=== PATIENT | female | born 1985 | race Caucasian/White ===

== ENCOUNTER → 2019-09-18 11:31 | Outpatient (BNVA) | payer MEDICAID, SELFPAY | PROVIDERS: Family Provider Family Medicine; PCP Family Medicine; Visit Provider Specialist | DX: G43.711 Chronic migraine without aura, intractable, with status migrainosus (principal); G35 Multiple sclerosis; F17.210 Nicotine dependence, cigarettes, uncomplicated | CPT/HCPCS: 64615; J0585 ==

== ENCOUNTER → 2020-01-01 13:04 | Outpatient (BNVA) | payer MEDICAID, SELFPAY | PROVIDERS: Family Provider Family Medicine; PCP Family Medicine; Visit Provider Specialist | DX: G43.711 Chronic migraine without aura, intractable, with status migrainosus (principal); G35 Multiple sclerosis; F17.210 Nicotine dependence, cigarettes, uncomplicated | CPT/HCPCS: 64615; 99213; J0585 ==

== ENCOUNTER 2020-02-18 08:41 | Outpatient (CLI) | payer MEDICAID, SELFPAY ==
[2020-02-18] MEDS: acetaminophen 500 mg Tablet 1000 MG PO (09:15)
[2020-02-18] MEDS: diphenhydrAMINE 50 mg/mL SDV 1mL 25 MG IVP (09:20)
--- NOTE | 2020-02-18 10:50 | PC.NURSE ---
1050 Ocrevus titrated up to 80 ml/hr. Patient denies any needs at this time. No S/S of site reaction.
== END 2020-02-18 08:42 | disposition home or self-care (01) ==
LOC: NSACUTE 08:42
PROVIDERS: Family Provider Family Medicine; PCP Family Medicine; Visit Provider Specialist
DX: G35 Multiple sclerosis (principal); F17.210 Nicotine dependence, cigarettes, uncomplicated
CPT/HCPCS: 96374; 96375; 99214; J1200; J2350; J2930; J7040

== ENCOUNTER 2020-02-25 08:11 | Outpatient (CLI) | payer MEDICAID, SELFPAY ==
--- NOTE | 2020-02-25 08:30 | FL_ITS ---
WS: [id number] FL barium swallow modifd [id number] REASON FOR EXAM: T17.308A Unspecified foreign body in larynx causing other... FLUOROSCOPY TIME: 1.3 minutes FINDINGS: Patient has multiple sclerosis. At fluoroscopy there appeared to be slow motility through t he thoracic esophagus with slow flow through the midportion down to the lower there is no complete ob struction seen. FL/FL barium swallow modifd 63284 IMPRESSION: Abnormal mobility in the mid thoracic esophagus see speech pathology workup for details.
== END 2020-02-25 08:12 | disposition home or self-care (01) ==
LOC: RAD 08:12
PROVIDERS: Family Provider Family Medicine; PCP Family Medicine; Visit Provider Specialist
DX: T17.308A Unspecified foreign body in larynx causing other injury, initial encounter (principal); X58.XXXA Exposure to other specified factors, initial encounter
CPT/HCPCS: 74230; 92611

== ENCOUNTER 2020-04-05 09:47 | Day surgery (SDC) | payer MEDICAID, SELFPAY ==
[2020-04-02 08:26] VITALS: BMI 47.8
[2020-04-05 10:06] LABS: OR HCG Qualitative Urine Negative (Negative)
[2020-04-05 10:11] VITALS: BP 130/85; PULSE 73; RESP 18; TEMP 36.9; O2SAT 97
[2020-04-05] MEDS: sodium chloride 0.9% 1,000 ML 30 ML IV (10:22)
--- NOTE | 2020-04-05 10:29 | P.ANESASSM_ITS ---
Pre-Anesthetic Assessment Pre-Anesthetic Assessment: Height/Weight: Height 1.8 m Weight 155.582 kg Temp Pulse Resp BP Pulse Ox 98.5 F 73 18 130/85 97 04/05/20 10:11 04/05/20 10:11 04/05/20 10:11 04/05/20 10:11 04/05/20 10:11 Preop Diagnosis: d Proposed Procedure: Operation Date: 04/05/20 10:30 Proposed Procedures p EGD 21763 R13.10(Not Applicable) - Jaun Webber MD Last intake: Intake Last Liquid Date 04/05/20 Last Liquid Time 00:10 Last Solid Date 04/04/20 Last Solid Time 23:30 Social: Social History: Tobacco and No alcohol Exam: Pre-Anes Outpt Exam: alert, oriented x 3, clear to auscultation bilaterally and regular rate & rhythm Airway: Submandibular: WNL Cervical ROM: WNL MP: 2 Dentition: Other (teeth ok) History/ROS: No significant history except as noted Pulmonary: Pulmonary: None reported CV/HEM: CV/HEM: None reported : : None reported Hepatic: Hepatic: None reported GI: Comments: dysphagia Metabolic: Metabolic: Morbid obesity Musc/skel: Musc/skel: Weakness (left side) Neuropsych: Neuropsych: Anxiety and Depression Comments: MS- no resp involv ement Anesthetic Plan: ASA status: 3 Anesthesia: Anesthesia Evaluation and MAC Risk of > 500 ml blood loss (7ml/kg in children): No Meds/Allergies Current Medications: Current Medications Generic Name Dose Route Start Last Admin Trade Name Freq PRN Reason Stop Dose Admin Sodium Chloride 1,000 mls @ 30 ml s/hr 04/05/20 09:45 04/05/20 10:22 Sodium Chloride 0.9% IV 30 mls/hr .Q24H HOLLIE Administration PFSH Anesthesia PFSH: Medical History Chronic migraine without aura, with intractable migraine, so stated, with status migrainosus History of DVT (deep vein thrombosis) Clot in right arm due to Port-A-Cath complication. Treated with Coumadin for 6 months. Negative evaluation for genetic causes. Multiple sclerosis not affecting current episode of care Surgical History History of removal of Port-a-Cath inserted 2003; removed 2011 Family History Grandfather Diabetes paternal Hypertension paternal Heart disease paternal Hyperlipidemia paternal Father Hyperlipidemia Hypertension Grandmother Breast cancer paternal Social History Smoking and tobacco status: current every day smoker cigarettes [ Other cigarette details: Resumed smoking, currently 4 cigarettes/day. Previously quit smoking 06/2013. ] Alcohol intake: current Alcohol intake frequency: other Current occupational status: unemployed History of recent travel: No Additional social history: Well balanced diet Data Anesthesia Other Labs: Laboratory Results - last 48 hr 04/05/20 09:58 Urine HCG, Qual Negative Cardiac Studies: No Data to Display
--- NOTE | 2020-04-05 10:50 | W.PM.OPSUD ---
Surgery/Procedure H&P Update DATE OF PROCEDURE: April 05, 2020 DATE H&P PERFORMED: 04/01/20 PREOP DIAGNOSIS: d PLANNED PROCEDURE: Operation Date: 04/05/20 10:30 Proposed Procedures p EGD 99828 R13.10(Not Applicable) - Jaun Webber MD
[2020-04-05 11:02] VITALS: BP 112/75; PULSE 75; RESP 16; TEMP 36.6; O2SAT 94
--- NOTE | 2020-04-05 11:05 | ANE.PACU2 ---
Inpatient post-anesthesia follow up: Airway intact: Yes Vital signs: Temperature 97.8 F Pulse Rate 75 Respiratory Rate 16 Blood Pressure 112/75 Pulse Oximetry 94 Oxygen Delivery Me thod Nasal Cannula Oxygen Flow Rate Fraction of Inspir ed Oxygen Hydration adequate: Yes Nausea and vomiting: No Pain level: 1 Mental status: Baseline
[2020-04-05 11:17] VITALS: BP 114/78; PULSE 61; RESP 18; O2SAT 96
[2020-04-06 05:56] LABS: H. Pylori / CLO Test Negative
== END 2020-04-05 11:30 | disposition home or self-care (01) ==
PROVIDERS: PCP Family Medicine; Visit Provider Internal Medicine
PROC: 0DJ08ZZ Inspection of Upper Intestinal Tract, Via Natural or Artificial Opening Endoscopic (ICD-10-PCS; CPT 43235; principal; 2020-04-05 10:30)
DX: R13.10 Dysphagia, unspecified (principal); K22.10 Ulcer of esophagus without bleeding; K29.70 Gastritis, unspecified, without bleeding; Z86.718 Personal history of other venous thrombosis and embolism; G35 Multiple sclerosis; F17.210 Nicotine dependence, cigarettes, uncomplicated; Z79.82 Long term (current) use of aspirin
CPT/HCPCS: 12345; 43239; 84703; 87077; J2704; J7030

== ENCOUNTER → 2020-04-15 15:10 | Outpatient (BNVA) | payer MEDICAID, SELFPAY | PROVIDERS: PCP Family Medicine; Visit Provider Specialist | DX: G43.711 Chronic migraine without aura, intractable, with status migrainosus (principal); G35 Multiple sclerosis; F17.210 Nicotine dependence, cigarettes, uncomplicated | CPT/HCPCS: 64615; 99213; J0585 ==

== ENCOUNTER → 2020-05-11 09:00 | Outpatient (BNVA) | payer MEDICAID, SELFPAY | PROVIDERS: PCP Family Medicine; Visit Provider Specialist | DX: G35 Multiple sclerosis (principal); E66.01 Morbid (severe) obesity due to excess calories; F17.210 Nicotine dependence, cigarettes, uncomplicated | CPT/HCPCS: 99215 ==

== ENCOUNTER 2020-05-20 11:01 | Outpatient (CLI) | payer MEDICAID, SELFPAY | END 2020-05-20 11:02 | disposition home or self-care (01) | LOC: LAB 11:05 | PROVIDERS: PCP Family Medicine; Visit Provider Internal Medicine | DX: Z13.1 Encounter for screening for diabetes mellitus (principal) | CPT/HCPCS: 80053; 83036; 84443; 85025 ==

== ENCOUNTER 2020-05-28 09:03 | Outpatient (RCR) | payer MEDICAID, SELFPAY ==
[2020-05-24 09:50] LABS: Basophils % 0.7 %; Eosinophils # 0.1 10^3/uL (0.0-0.8); Eosinophils % 2.1 %; Hematocrit 43.4 % (37.0-47.0); Hemoglobin 13.7 g/dL (11.5-15.3); Lymphocytes # 1.4 10^3/uL (0.8-4.8); Lymphocytes % 24.4 %; Mean Corpuscular HGB Conc 31.6 g/dL (30.0-36.0); Mean Corpuscular Hemoglobin 30.2 pg (28.0-34.0); Mean Corpuscular Volume 95.8 fL (81-99); Mean Platelet Volume 11.4 fL (7.4-10.4); Monocytes # 0.5 10^3/uL (0.2-0.9); Monocytes % 8.9 %; Neutrophils # 3.72 10^3/uL (1.8-7.7); Neutrophils % 63.6 %; Nucleated Red Blood Cells % 0 %; Platelet Count 252 10^3/cmm (130-400); Red Blood Count 4.53 10^6/uL (4.1-5.3); Red Cell Distribution Width 13.5 % (12.1-15.1); White Blood Count 5.9 10^3/uL (4.0-10.0)
[2020-05-24 09:54] VITALS: BP 128/90; PULSE 78; RESP 18; TEMP 36.2; O2SAT 100; BMI 47.4
[2020-05-24 10:05] LABS: Estmated Average Glucose 117; Hemoglobin A1C 5.7 % (4.0-6.0)
[2020-05-24 10:20] LABS: Alanine Aminotransferase 11 U/L (0-33); Albumin Level 4.1 g/dL (3.5-5.2); Alkaline Phosphatase 74 IU/L (35-105); Anion Gap 14.8 (5-19); Aspartate Amino Transferase 11 U/L (0-32); Blood Urea Nitrogen 12 mg/dL (6-20); Calcium 8.8 mg/dL (8.5-10.5); Carbon Dioxide 21 mmol/L (22-29); Chloride 105 mmol/L (98-107); Globulin 3.3 g/dL (1.3-4.6); Glomerular Filtration Rate 142.1 mL/min (90-130); Glucose 114 mg/dL (65-115); Osmolality Calculated 281 mOsm/kg (285-295); Potassium 3.8 mmol/L (3.5-5.1); Sodium 137 mmol/L (136-145); Thyroid Stimulating Hormone 2.29 uIU/mL (0.27-4.20); Total Bilirubin 0.2 mg/dL (0.15-1.2); Total Protein 7.4 g/dL (6.6-8.7)
[2020-05-25 09:11] VITALS: BP 138/81; PULSE 69; RESP 18; TEMP 37.1; O2SAT 97
[2020-05-25 11:08] LABS: Glucose Point of Care 140 mg/dL (70-110)
[2020-05-25 11:08] LABS: Glucose Point of Care 171 mg/dL (70-110)
[2020-05-26 09:26] VITALS: BP 115/85; PULSE 65; RESP 18; TEMP 36.4; O2SAT 99
[2020-05-26 10:39] LABS: Glucose Point of Care 105 mg/dL (70-110)
[2020-05-27 10:16] VITALS: BP 130/73; PULSE 69; RESP 18; TEMP 36.2; O2SAT 97
[2020-05-27 11:53] LABS: Glucose Point of Care 116 mg/dL (70-110)
[2020-05-28 09:30] LABS: Glucose Point of Care 92 mg/dL (70-110)
[2020-05-28 09:33] VITALS: BP 152/88; PULSE 57; RESP 18; TEMP 36.3; O2SAT 98
[2020-05-28 11:03] LABS: Glucose Point of Care 103 mg/dL (70-110)
== END 2020-06-09 23:59 | disposition home or self-care (01) ==
LOC: OPS 09:03
PROVIDERS: PCP Family Medicine; Visit Provider Specialist
DX: G35 Multiple sclerosis (principal)
CPT/HCPCS: 36415; 36416; 80053; 82962; 83036; 84443; 85025; 96365; J2930; J7050

== ENCOUNTER → 2020-09-16 12:54 | Outpatient (BNVA) | payer MEDICAID, SELFPAY | PROVIDERS: PCP Internal Medicine; Visit Provider Specialist | DX: G43.711 Chronic migraine without aura, intractable, with status migrainosus (principal); G35 Multiple sclerosis; F17.210 Nicotine dependence, cigarettes, uncomplicated | CPT/HCPCS: 64615; 99213; J0585 ==

== ENCOUNTER → 2020-12-09 11:23 | Outpatient (BNVA) | payer MEDICAID, SELFPAY | PROVIDERS: PCP Internal Medicine; Visit Provider Specialist | DX: G35 Multiple sclerosis (principal); G43.709 Chronic migraine without aura, not intractable, without status migrainosus; G50.0 Trigeminal neuralgia; F17.210 Nicotine dependence, cigarettes, uncomplicated | CPT/HCPCS: 64615; 99214; J0585 ==

== ENCOUNTER → 2021-03-03 11:39 | Outpatient (BNVA) | payer MEDICAID, SELFPAY | PROVIDERS: PCP Internal Medicine; Visit Provider Specialist | DX: G43.711 Chronic migraine without aura, intractable, with status migrainosus (principal); G35 Multiple sclerosis | CPT/HCPCS: 64615; 99213; 99214; J0585 ==

== ENCOUNTER → 2021-06-02 11:29 | Outpatient (BNVA) | payer MEDICAID, SELFPAY | PROVIDERS: PCP Internal Medicine; Visit Provider Specialist | DX: G43.711 Chronic migraine without aura, intractable, with status migrainosus (principal); G35 Multiple sclerosis; F17.210 Nicotine dependence, cigarettes, uncomplicated | CPT/HCPCS: 64615; 99213; J0585 ==

== ENCOUNTER → 2021-09-01 07:51 | Outpatient (BNVA) | payer MEDICAID, SELFPAY | PROVIDERS: PCP Internal Medicine; Visit Provider Specialist | DX: G43.711 Chronic migraine without aura, intractable, with status migrainosus (principal); G35 Multiple sclerosis | CPT/HCPCS: 64615; 99212; 99213; J0585 ==

== ENCOUNTER → 2022-03-23 08:21 | Outpatient (BNVA) | payer MEDICAID, SELFPAY | PROVIDERS: PCP Internal Medicine; Visit Provider Specialist | DX: G43.711 Chronic migraine without aura, intractable, with status migrainosus (principal); G35 Multiple sclerosis; G50.0 Trigeminal neuralgia; G47.419 Narcolepsy without cataplexy | CPT/HCPCS: 64615; 99214; J0585 ==

== ENCOUNTER → 2022-06-15 09:44 | Outpatient (BNVA) | payer MEDICAID, SELFPAY | PROVIDERS: PCP Internal Medicine; Visit Provider Specialist | DX: G43.711 Chronic migraine without aura, intractable, with status migrainosus (principal); G47.419 Narcolepsy without cataplexy; G50.0 Trigeminal neuralgia; G35 Multiple sclerosis | CPT/HCPCS: 64615; 99213; 99214; J0585 ==

== ENCOUNTER → 2022-09-14 09:28 | Outpatient (BNVA) | payer MEDICAID, SELFPAY | PROVIDERS: PCP Internal Medicine; Visit Provider Specialist | DX: G43.711 Chronic migraine without aura, intractable, with status migrainosus (principal); G47.419 Narcolepsy without cataplexy; G35 Multiple sclerosis | CPT/HCPCS: 64615; 99213; J0585 ==

== ENCOUNTER → 2022-12-07 10:50 | Outpatient (BNVA) | payer MEDICAID, SELFPAY | PROVIDERS: PCP Internal Medicine; Visit Provider Specialist | DX: G43.711 Chronic migraine without aura, intractable, with status migrainosus (principal); G50.0 Trigeminal neuralgia; G35 Multiple sclerosis; G47.419 Narcolepsy without cataplexy | CPT/HCPCS: 64615; 99213 ==

== ENCOUNTER 2023-01-22 16:50 | Emergency (ER) | payer MEDICAID, SELFPAY ==
[2023-01-22 17:04] VITALS: BP 144/92; PULSE 83; TEMP 36.8; O2SAT 96; BMI 48.8
--- NOTE | 2023-01-22 17:07 | ECG_ITS ---
[facility] Test Date: 2023-01-22 Pat Name: Kamilla Kendall Department: Room: Gender: Female [employer]: : 1985 Requested By: Diaz Barreto Order Number: [id number] Abdullahi MD: Tuan Elias M.D. Measurements Intervals [place] Rate: 81 P: 111 NH: 152 QRS: 10 QRSD: 97 T: 51 QT: 354 QTc: 411 Interpretive Statements SINUS RHYTHM Possible left atrial enlargement INTERPRETATION BASED ON A DEFAULT AGE OF 40 YEARS No previous ECG available for comparison Electronically Signed On 01-23-2023 0:15:09 CDT by Tuan Elias M.D. [email or web address] c. stennis memorial hospitalNeptuneohiohealth riverside methodist hospitalEdgeio/store/NU/[id number] f
--- NOTE | 2023-01-22 17:07 | XRR_ITS ---
PROCEDURE INFORMATION: Exam: XR Chest Exam date and time: 01/22/2023 6:18 PM Age: 37 years old Clinical indication: Pain; Chest pressure; Additional info: Cp TECHNIQUE: Imaging protocol: Radiologic exam of the chest. Views: 1 view. COMPARISON: No relevant prior studies available. FINDINGS: Lungs: Unremarkable. No consolidation. Pleural spaces: Unremarkable. No pleural effusion. No pneumothorax. Heart/Mediastinum: Unremarkable. No cardiomegaly. Bones/joints: Unremarkable. XR/XR chest 1V portable [id number] IMPRESSION: No acute findings.
[2023-01-22 17:57] LABS: Basophils # 0.1 10^3/uL (0.0-0.1); Basophils % 0.6 %; Eosinophils # 0.2 10^3/uL (0.0-0.8); Hematocrit 42.2 % (37.0-47.0); Hemoglobin 13.5 g/dL (11.5-15.3); Lymphocytes # 2.1 10^3/uL (0.8-4.8); Lymphocytes % 26.3 %; Mean Corpuscular Hemoglobin 30.7 pg (28.0-34.0); Mean Corpuscular Volume 95.9 fl (81-99); Mean Platelet Volume 10.5 fL (7.4-10.4); Monocytes # 0.6 10^3/uL (0.2-0.9); Monocytes % 7.7 %; Neutrophils # 4.96 10^3/uL (1.8-7.7); Nucleated Red Blood Cells % 0 %; Platelet Count 237 10^3/cmm (130-400); Red Cell Distribution Width 13.2 % (12.1-15.1); White Blood Count 7.9 10^3/uL (4.0-10.0)
[2023-01-22 18:22] LABS: Troponin(5th) Baseline 6 ng/L (0-10)
[2023-01-22 18:31] LABS: Alanine Aminotransferase 21 U/L (0-33); Albumin Level 4.2 g/dL (3.5-5.2); Alkaline Phosphatase 64 U/L (35-105); Anion Gap 13.7 (5-19); Aspartate Amino Transferase 16 U/L (0-32); Blood Urea Nitrogen 9 mg/dL (6-20); Calcium 8.6 mg/dL (8.5-10.5); Carbon Dioxide 27 mmol/L (22-29); Chloride 104 mmol/L (98-107); Globulin 2.6 g/dL (1.3-4.6); Glomerular Filtration Rate 181.6 mL/min (90-130); Glucose 86 mg/dL (65-115); NT Pro B Type Natriuretic Pept 99 pg/mL (0-125); Osmolality Calculated 288 mOsm/kg (285-295); Potassium 4.7 mmol/L (3.5-5.1); Sodium 140 mmol/L (136-145); Total Bilirubin 0.2 mg/dL (0.15-1.2); Total Protein 6.8 g/dL (6.6-8.7)
[2023-01-22 20:03] LABS: Troponin 5 2HR Delta 0 ABS# (0-10)
--- NOTE | 2023-01-22 21:51 | ED_ITS ---
HPI - Chest Pain General: Chief Complaint: Chest Pain Stated Complaint: chest pain Time Seen by Provider: 01/22/23 21:47 History of Present Illness: 37-year-old female comes in today with complaints of chest discomfort. Patient reports the discomfort is centralized and more like pressure. Patient is concerned due to a history of DVT in the right upper extremity and a clot in the report that she had to have removed after treatment for uterine cancer. Patient appears nontoxic. Patient appears in mild pain. Patient denies any other medical issues. Patient's medical history includes obesity, ADHD, mental health disorder. Associated symptoms: Deny dyspnea, fever(s) or vomiting Review of Systems General: Reports: 10 or more systems reviewed and unremarkable except in HPI and below Const: Denies: fever(s) Card: Reports: chest pain Resp: Denies: dyspnea GI: Denies: vomiting : Denies: difficulty voiding Musc: Denies: neck pain or back pain Skin/Breast: Denies: rash PFSH ED PFSH: Medical History (Updated 01/22/23 @ 22:41 by NEENA Caldera) Chronic migraine without aura, with intractable migraine, so stated, with status migrainosus History of DVT (deep vein thrombosis) Clot in right arm due to Port-A-Cath complication. Treated with Coumadin for 6 months. Negative evaluation for genetic causes. Multiple sclerosis not affecting current episode of care Surgical History History of removal of Port-a-Cath inserted 2003; removed 2011 Family History Grandfather Diabetes paternal Hypertension paternal Heart disease paternal Hyperlipidemia paternal Father Hyperlipidemia Hypertension Grandmother Breast cancer paternal Social History Smoking and tobacco status: current every day smoker cigarettes [ Other cigarette details: Resumed smoking, currently 4 cigarettes/day. Previously quit smoking 06/2013.] Alcohol intake: current Alcohol intake frequency: other Substance/Drug Use: never Current occupational status: unemployed Additional social history: Well balanced diet Physical Exam Const: COMMON NORMALS: alert HENMT: COMMON NORMALS: normocephalic HEAD & SCALP: normocephalic Neck/C-Spine: COMMON NORMALS: full ROM Chest: COMMONS NORMALS: normal palpation of entire chest wall Resp: COMMON NORMALS: normal respiratory effort and clear to auscultation bilaterally AUSCULTATION: clear to auscultation bilaterally Cardio: COMMON NORMALS: regular rate and regular rhythm RATE: regular rate RHYTHM: regular rhythm GI: COMMON NORMALS: Soft to palpation and non-tender PALPATION: Yes Soft to palpation Extremity: COMMON NORMALS: normal to inspection Neuro: SENSORIUM/ORIENTATION: Yes alert Skin: COMMON NORMALS: turgor normal GENERAL SKIN EXAM: turgor normal Course Vital Signs: Vital signs: Vital Signs Temperature 98.2 F 01/22/23 17:04 Pulse Rate 83 01/22/23 17:04 Blood Pressure 144/92 01/22/23 17:04 Pulse Oximetry 96 01/22/23 17:04 Oxygen Delivery Me thod Room Air 01/22/23 17:04 MDM - Chest Pain Medical Decision Making Patient comes in today for complaints of chest pressure. Patient reports pr essure started this morning and has not improved. On exam no tenderness is noted on palpation of the chest wall. Lungs are clear to auscultation. No pain is elicited along the neck or back. No edema is noted in the extremities. Abdomen soft nontender. Vital signs are normal except for some elevation in blood pressure. Differential diagnosis includes not limited to hypertension, CHF, ACS, anxiety. Chest x-ray was normal. CBC and CMP were unremarkable. Troponin had no change at 2 hours and was less than 6. D-dimer was less than 0.5. Believe the patient may be having some chest discomfort most likely due to anxiety. Patient may have some GERD or some discomfort secondary to her ken vated blood pressure. Recommended recheck with primary care for her blood pressure and to discuss further evaluation regarding her chest discomfort. No signs of severe illness was noted and patient was stable and was released to home. Lab Data 01/22/23 17:46 01/22/23 17:46 Radiology Impressions Chest X-Ray 01/22/23 17:07 IMPRESSION: No acute findings. Laboratory Results WBC 7.9 10^3/uL (4.0-10.0) 01/22/23 17:46 RBC 4.40 10^6/uL (4.1-5.3) 01/22/23 17:46 Hgb 13.5 g/dL (11.5-15.3) 01/22/23 17:46 Hct 42.2 % (37.0-47.0) 01/22/23 17:46 MCV 95.9 fl (81-99) 01/22/23 17:46 MCH 30.7 pg (28.0-34.0) 01/22/23 17:46 MCHC 32.0 g/dL (30.0-36.0) 01/22/23 17:46 RDW 13.2 % (12.1-15.1) 01/22/23 17:46 Plt Count 237 10^3/cmm (130-400) 01/22/23 17:46 MPV 10.5 fL (7.4-10.4) H 01/22/23 17:46 Neut % (Auto) 63.0 % 01/22/23 17:46 Lymph % (Auto) 26.3 % 01/22/23 17:46 [place] % (Auto) 7.7 % 01/22/23 17:46 Eos % (Auto) 2.0 % 01/22/23 17:46 Baso % (Auto) 0.6 % 01/22/23 17:46 Neut # (Auto) 4.96 10^3/uL (1.8-7.7) 01/22/23 17:46 Lymph # (Auto) 2.1 10^3/uL (0.8-4.8) 01/22/23 17:46 [place] # (Auto) 0.6 10^3/uL (0.2-0.9) 01/22/23 17:46 Eos # (Auto) 0.2 10^3/uL (0.0-0.8) 01/22/23 17:46 Baso # (Auto) 0.1 10^3/uL (0.0-0.1) 01/22/23 17:46 Nucleated RBC % (auto) 0 % 01/22/23 17:46 Nucleated RBCs # 0.0 /100WBC 01/22/23 17:46 D-Dimer 0.35 ug/mIFEU (0-0.59) 01/22/23 17:46 Sodium 140 mmol/L (136-145) 01/22/23 17:46 Potassium 4.7 mmol/L (3.5-5.1) 01/22/23 17:46 Chloride 104 mmol/L (98-107) 01/22/23 17:46 Carbon Dioxide 27 mmol/L (22-29) 01/22/23 17:46 Anion Gap 13.7 (5-19) 01/22/23 17:46 BUN 9 mg/dL (6-20) 01/22/23 17:46 Creatinine 0.4 mg/dL (0.5-0.9) L 01/22/23 17:46 GFR Calculation 181.6 mL/min (90-130) H 01/22/23 17:46 Glucose 86 mg/dL (65-115) 01/22/23 17:46 Calculated Osmolality 288 mOsm/kg (285-295) 01/22/23 17:46 Calcium 8.6 mg/dL (8.5-10.5) 01/22/23 17:46 Total Bilirubin 0.2 mg/dL (0.15-1.2) 01/22/23 17:46 AST 16 U/L (0-32) 01/22/23 17:46 ALT 21 U/L (0-33) 01/22/23 17:46 Alkaline Phosphatase 64 U/L (35-105) 01/22/23 17:46 Troponin T Baseline 6 ng/L (0-10) 01/22/23 17:46 Troponin T 120 Minute 6.00 ng/L (0-10) 01/22/23 19:26 Delta Troponin T 0 ABS# (0-10) 01/22/23 19:26 NT-Pro-B Natriuret Pep 99 pg/mL (0-125) 01/22/23 17:46 Total Protein 6.8 g/dL (6.6-8.7) 01/22/23 17:46 Albumin 4.2 g/dL (3.5-5.2) 01/22/23 17:46 Globulin 2.6 g/dL (1.3-4.6) 01/22/23 17:46 Discharge Plan Discharge Patient Disposition: Home Clinical Impression: Chest pain Qualifiers: Chest pain type: unspecified Qualified Code(s): R07.9 - Chest pain, unspecified Condition: Stable Prescriptions: No Action Mirena 20 mcg/24 hours (5 yrs) 52 mg intrauterine device 1 device INTRAUTERI ONCE pseudoephedrine HCl [Sudafed 12 Hour] 120 mg tablet extended release 120 mg PO Q12H PRN (Reason: Cough) loratadine [Claritin] 10 mg tablet 10 mg PO DAILY Botox 100 unit recon soln 155 unit IM .every 12 weeks baclofen 20 mg tablet See Rx Instructions .ROUTE .COMPLEX Qty: 180 0RF Dose Instruction: TAKE 1 TABLET BY MOUTH TWICE DAILY Rx Instructions: TAKE 1 TABLET BY MOUTH TWICE DAILY methylphenidate HCl 20 mg tablet 20 mg PO BID 30 Days Qty: 60 0RF Rx Instructions: TAKE ONE TABLE IN MORNING AND ONE TABLE IN THE AFTERNOON methylphenidate HCl 20 mg tablet 20 mg PO DAILY 30 Days Qty: 60 0RF Rx Instructions: TAKE ONE TABLE IN MORNING AND ONE TABLE IN THE AFTERNOON DO NOT FILL UNTIL 01/06/23 methylphenidate HCl 20 mg tablet 20 mg PO DAILY 30 Days Qty: 60 0RF Rx Instructions: TAKE ONE TABLE IN MORNING AND ONE TABLE IN THE AFTERNOON DO NOT FILL UNTIL 02/05/23 pantoprazole 40 mg tablet,delayed release (DR/EC) 40 mg PO DAILY Qty: 90 1RF carbamazepine 200 mg tablet extended release 12 hr See Rx Instructions .ROUTE .COMPLEX Qty: 180 3RF Dose Instruction: TAKE 1 TABLET BY MOUTH TWICE DAILY Rx Instructions: TAKE 1 TABLET BY MOUTH TWICE DAILY lamotrigine 150 mg tablet See Rx Instructions .ROUTE .COMPLEX Qty: 60 3RF Dose Instruction: TAKE 1 TABLET BY MOUTH TWICE DAILY Rx Instructions: TAKE 1 TABLET BY MOUTH TWICE DAILY venlafaxine 150 mg capsule,extended release 24hr See Rx Instructions .ROUTE .COMPLEX Qty: 90 3RF Dose Instruction: TAKE 1 CAPSULE BY MOUTH DAILY Rx Instructions: TAKE 1 CAPSULE BY MOUTH DAILY topiramate 50 mg tablet See Rx Instructions .ROUTE .COMPLEX Qty: 180 3RF Dose Instruction: TAKE 3 TABLETS BY MOUTH TWICE DAILY Rx Instructions: TAKE 3 TABLETS BY MOUTH TWICE DAILY dimethyl fumarate 240 mg capsule,delayed release(DR/EC) See Rx Instructions .ROUTE .COMPLEX Qty: 60 0RF Dose Instruction: TAKE 1 CAPSULE BY MOUTH TWICE A DAY Rx Instructions: TAKE 1 CAPSULE BY MOUTH TWICE A DAY Discharge Orders: Discharge ED (Routine); Ordered 01/22/23 Ordered By: Good Rogers Referrals: Jaun Webber MD [Primary Care Provider] - Discharge Diet: Usual diet Discharge Activity: Increase activity as tolerated Patient Instructions: Chest Pain (ED) Activity Restrictions/Additional Instructions: Follow-up with primary care for further evaluation. You need to have your blood pressure rechecked to verify readings. Return to ED for new concerns. Coding Level of Care Code ED Clarifier for Shweta Guillermo
[2023-01-22 22:20] LABS: D Dimer 0.35 ug/mIFEU (0-0.59)
[2023-01-22 22:52] VITALS: BP 149/88; PULSE 64; RESP 18; O2SAT 97
== END 2023-01-22 22:52 | disposition home or self-care (01) ==
PROVIDERS: Emergency Medicine; Emergency Provider Nurse Practitioner Family; PCP Internal Medicine
DX: R07.9 Chest pain, unspecified (principal); F17.210 Nicotine dependence, cigarettes, uncomplicated; G35 Multiple sclerosis
CPT/HCPCS: 36415; 71045; 80053; 83880; 84484; 85025; 85378; 93005; 99285

== ENCOUNTER → 2023-03-08 09:55 | Outpatient (BNVA) | payer MEDICAID, SELFPAY | PROVIDERS: PCP Internal Medicine; Visit Provider Specialist | DX: G43.711 Chronic migraine without aura, intractable, with status migrainosus (principal); G47.419 Narcolepsy without cataplexy; G50.0 Trigeminal neuralgia; G35 Multiple sclerosis | CPT/HCPCS: 64615; 99213; J0585 ==

== ENCOUNTER → 2023-06-07 13:10 | Outpatient (BNVA) | payer MEDICAID, SELFPAY | PROVIDERS: PCP Internal Medicine; Visit Provider Specialist | DX: G47.419 Narcolepsy without cataplexy (principal); G43.711 Chronic migraine without aura, intractable, with status migrainosus; G35 Multiple sclerosis | CPT/HCPCS: 64615; 99214; J0585 ==

== ENCOUNTER → 2023-09-13 13:20 | Outpatient (BNVA) | payer MEDICAID, SELFPAY | PROVIDERS: Visit Provider Specialist | DX: G43.711 Chronic migraine without aura, intractable, with status migrainosus (principal) | CPT/HCPCS: 64615; 99215; J0585 ==

== ENCOUNTER → 2023-12-13 10:59 | Outpatient (BNVA) | payer MEDICAID, SELFPAY | PROVIDERS: Visit Provider Specialist | DX: G43.711 Chronic migraine without aura, intractable, with status migrainosus (principal); G35 Multiple sclerosis; G47.419 Narcolepsy without cataplexy | CPT/HCPCS: 64615; 99213; J0585 ==

== ENCOUNTER 2024-02-01 08:00 | Oncology outpatient (recurring) (ONCR) | payer MEDICAID, SELFPAY ==
[2024-01-30 08:21] VITALS: BP 155/90; PULSE 74; RESP 16; TEMP 36.4; O2SAT 96
[2024-01-30] MEDS: methylPREDNISolone sod succ 1,000 MG in sodium chloride 0.9% 250 ML 258 MG IV (08:42)
[2024-01-30 09:35] VITALS: BP 162/78; PULSE 62; RESP 18; TEMP 36.8; O2SAT 95
[2024-01-31 08:18] VITALS: BP 160/83; PULSE 65; RESP 18; TEMP 36.2; O2SAT 98
[2024-01-31] MEDS: methylPREDNISolone sod succ 1,000 MG in sodium chloride 0.9% 250 ML 258 MG IV (09:36)
[2024-01-31 10:50] VITALS: BP 131/83; PULSE 78; RESP 17; TEMP 36.5; O2SAT 96
[2024-02-01 08:18] VITALS: BP 135/85; PULSE 69; RESP 18; TEMP 36.5; O2SAT 97
[2024-02-01 08:19] VITALS: BMI 50.8
[2024-02-01] MEDS: methylPREDNISolone sod succ 1,000 MG in sodium chloride 0.9% 250 ML 258 MG IV (09:17)
[2024-02-01 11:00] VITALS: BP 128/75; PULSE 60; RESP 17; TEMP 35.8; O2SAT 97
== END 2024-02-08 23:59 | disposition home or self-care (01) ==
PROVIDERS: Visit Provider Internal Medicine Medical Oncology
DX: G35 Multiple sclerosis (principal); Z53.9 Procedure and treatment not carried out, unspecified reason
CPT/HCPCS: 96365; J2919; J7050

== ENCOUNTER → 2024-04-03 11:30 | Outpatient (BNVA) | payer MEDICAID, SELFPAY | PROVIDERS: Visit Provider Specialist | DX: G43.711 Chronic migraine without aura, intractable, with status migrainosus (principal); G35 Multiple sclerosis; G47.419 Narcolepsy without cataplexy | CPT/HCPCS: 64615; 99213; J0585 ==

== ENCOUNTER → 2024-04-30 15:45 | Outpatient (BNVA) | payer MEDICAID, SELFPAY | PROVIDERS: Visit Provider Specialist | DX: G43.711 Chronic migraine without aura, intractable, with status migrainosus (principal); G35 Multiple sclerosis; G47.419 Narcolepsy without cataplexy; R03.0 Elevated blood-pressure reading, without diagnosis of hypertension | CPT/HCPCS: 99214; 99215 ==

== ENCOUNTER 2024-06-04 08:00 | Outpatient (CLI) | payer MEDICAID, SELFPAY ==
--- NOTE | 2024-06-04 08:00 | MR_ITS ---
WS: [id number] MRI BRAIN WITH AND WITHOUT CONTRAST HISTORY: G35 - Multiple sclerosis COMPARISON: 05/25/2020 TECHNIQUE: Multiplanar imaging performed through the brain with MultiHance 20 ml's IV. No acute infarct. Best seen on the FLAIR sequence are numerous signal hyperintensities in the calloso septal and pericallosal distribution. Some of these lesions are ovoid and linear contacting the corpu s callosum. Slightly greater distribution on the RIGHT. There are also lesions in the temporal lobes bilaterally which can be seen also with multiple sclerosis. Taking into consideration the difference in technique there does appear to be a slight progression in the amount of demyelinating disease. Amarjit e of the plaques appear slightly greater in size and some are better visualized today. No susceptibility artifacts or prior lacunar infarcts. Ventricles and extra-axial spaces are normal. Clivus and pituitary gland are normal. Visualized posterior fossa and brainstem are also normal. Postcontrast images are negative for masses or vascular malformations. Dural venous sinuses are normal. Paranasal sinuses: Well aerated with no significant disease. Mastoid air cells: Normal. Calvarium and scalp: Normal. MR/MR head wo/w con [id number] IMPRESSION: 1. No enhancing demyelinating lesions identified. 2. There may have been a very slight progression of demyelination since the pr ior study from 05/25/2020. Some of the demyelinating plaques are slightly better visualized which may be due to technique and less motion. Minimal progression if any. No enhancement. 3. No significant volume loss. 4. No demyelination in the posterior fossa.
--- NOTE | 2024-06-04 08:45 | MR_ITS ---
WS: [id number] MRI CERVICAL SPINE with and without contrast HISTORY: G35 - Multiple sclerosis COMPARISON: 02/08/2015 Technique: Multiplanar, multisequence noncontrast imaging of the cervical spine. Postcontrast MultiHa nce 20 mL IV. Mild straightening of the normal cervical lordosis. Mild progression of degenerative changes in the c ervical spine since 2014. No signal abnormalities are noted throughout the cervical cord. There is no enhancement, cord atrophy or enlargement. Signal within the cervical cord is normal. Visualized posterior fossa is unremarkable. Craniocervical junction, C1 and C2 relationship, odontoid process and soft tissues are normal. C2-C3: Normal. C3-C4: Normal. C4-C5: Small LEFT paracentral disc protrusion is new. Mild effacement of CSF but no cord contact. C5-C6: Mild osteophytic ridging with annular disc bulging. There are small bilateral paracentral disc protrusions effacing CSF but not contacting the cord. No stenosis. C6-C7: Small central disc protrusions with osteophytic ridging. New since the prior study. New degene rative endplate changes at C6-7. C7-T1: Normal. No enhancement within the cord. Previously described blush like enhancement at C5 is not evident. MR/MR cervical spine wo/w [id number] IMPRESSION: 1. No demyelinating lesions or abnormal enhancement in the cervical cord. 2. New small disc protrusions at C4-5, C5-6 and C6-7 since 2014. Disc protrusi ons as above are resulting in mild effacement of CSF but no cord contact.
--- NOTE | 2024-06-04 09:30 | MR_ITS ---
WS: [id number] MRI THORACIC SPINE with and without contrast HISTORY: G35 - Multiple sclerosis COMPARISON: None available. TECHNIQUE: Multiplanar sequences are performed in sagittal and axial planes. MultiHance 20 mL IV post contrast. Normal thoracic alignment. No marrow edema or fractures. Moderate degenerative disc disease at T11-12 with disc bulging. Shallow RIGHT paracentral disc protrusion at T11-12. No stenosis. The remaining levels are negative for disc protrusions. No central or foraminal stenosis. Small bilat eral nerve root sleeve cysts at T12-L1. Signal within the cord is normal. There is no cord atrophy or enlargement. No areas of abnormal enhan cement. MR/MR thoracic spine wo/w [id number] IMPRESSION: 1. No thoracic cord demyelinating lesions. No cord atrophy or enlargement. 2. No significant central or foraminal stenosis. 3. Small RIGHT paracentral disc protrusion at T11-12.
[2024-06-04] MEDS: gadobenate dimeglumine 20 mL vial IV (09:56)
== END 2024-06-04 08:11 | disposition home or self-care (01) ==
PROVIDERS: PCP Internal Medicine; Visit Provider Specialist
DX: G35 Multiple sclerosis (principal); M51.34 Other intervertebral disc degeneration, thoracic region; M50.323 Other cervical disc degeneration at C6-C7 level
CPT/HCPCS: 70553; 72156; 72157; A9577

== ENCOUNTER → 2024-06-27 11:30 | Outpatient (BNVA) | payer MEDICAID, SELFPAY | PROVIDERS: PCP Internal Medicine; Visit Provider Specialist | DX: G43.711 Chronic migraine without aura, intractable, with status migrainosus (principal); G35 Multiple sclerosis; G47.419 Narcolepsy without cataplexy; R03.0 Elevated blood-pressure reading, without diagnosis of hypertension | CPT/HCPCS: 64615; 99214; J0585 ==

== ENCOUNTER → 2024-09-26 11:15 | Outpatient (BNVA) | payer MEDICAID, SELFPAY | PROVIDERS: PCP Internal Medicine; Visit Provider Specialist | DX: G43.711 Chronic migraine without aura, intractable, with status migrainosus (principal); G35 Multiple sclerosis; R03.0 Elevated blood-pressure reading, without diagnosis of hypertension; G47.419 Narcolepsy without cataplexy | CPT/HCPCS: 64615; 99212; J0585 ==

== ENCOUNTER → 2025-01-02 10:20 | Outpatient (BNVA) | payer MEDICAID, SELFPAY | PROVIDERS: PCP Internal Medicine; Visit Provider Specialist | DX: G43.711 Chronic migraine without aura, intractable, with status migrainosus (principal); G35 Multiple sclerosis; G47.419 Narcolepsy without cataplexy; R03.0 Elevated blood-pressure reading, without diagnosis of hypertension | CPT/HCPCS: 64615; 99213; J0585; J9999 ==

== ENCOUNTER → 2025-04-02 10:26 | Outpatient (BNVA) | payer MEDICAID, SELFPAY | PROVIDERS: PCP Internal Medicine; Visit Provider Specialist | DX: G43.711 Chronic migraine without aura, intractable, with status migrainosus (principal) | CPT/HCPCS: 64615; 99214; J0585; J9999 ==

== ENCOUNTER → 2025-07-16 14:30 | Outpatient (BNVA) | payer MEDICAID, SELFPAY | PROVIDERS: PCP Internal Medicine; Visit Provider Specialist | DX: G43.711 Chronic migraine without aura, intractable, with status migrainosus (principal); G47.419 Narcolepsy without cataplexy; G35.D Multiple sclerosis, unspecified; R03.0 Elevated blood-pressure reading, without diagnosis of hypertension | CPT/HCPCS: 64615; 99213; J0585; J9999 ==